=== PATIENT | male | born 1945 | race Caucasian/White ===

== ENCOUNTER 2023-01-11 06:43 | Inpatient (IN) | payer MEDICARE, MEDICAID ==
[2023-01-06 12:03] LABS: BILIRUBIN,URINE NEGATIVE (Neg); CLARITY,URINE CLEAR (Clear); COLOR,URINE YELLOW (Yellow); GLUCOSE, URINE NEGATIVE (Neg); KETONES,URINE NEGATIVE (Neg); LEUKOCYTE ESTERASE ,URINE NEGATIVE (Neg); NITRITES, URINE NEGATIVE (Neg); OCCULT BLOOD,URINE NEGATIVE (Neg); PROTEIN,URINE NEGATIVE (Neg); UROBILINOGEN,URINE 0.2 E.U/dL (0.2-1.0)
[2023-01-06 12:05] LABS: BASOPHILS % (AUTO) 0.4 % (0-1); EOSINOPHILS # (AUTO) 0.3 X10'3 (0-0.9); EOSINOPHILS % (AUTO) 5.2 % (0-6); LYMPHOCYTES # (AUTO) 1.4 X10'3 (1.1-4.8); MEAN CORPUSCULAR HEMOGLOBIN 30.3 PG (27.0-31.0); MEAN CORPUSCULAR HGB CONC 34.2 g/dL (33.0-36.5); MEAN CORPUSCULAR VOLUME 88.5 FL (78-98); MEAN PLATELET VOLUME 7.3 FL (7.4-10.4); MONOCYTES # (AUTO) 0.7 X10'3 (0-0.9); MONOCYTES % (AUTO) 11.7 % (2-12); NEUTROPHILS # (AUTO) 3.5 X10'3 (1.8-7.7); NEUTROPHILS % (AUTO) 58.7 % (42-75); PRE OP HEMATOCRIT 31.7 % (42.0-52.0); PRE OP PLATELET COUNT 298 X10'3 (140-440); RED BLOOD COUNT 3.59 X10'6 (4.70-6.10); RED CELL DISTRIBUTION WIDTH 13.2 % (11.5-14.5)
[2023-01-06 12:08] LABS: PRE OP HEMOGLOBIN 10.9 g/dL (14.0-17.9)
[2023-01-06 12:17] LABS: APTT 28 SECONDS (22-32); PROTHROMBIN TIME 10.6 SECONDS (9.0-12.0)
[2023-01-06 12:21] LABS: UA COLLECTION TYPE CLN CATCH MIDSTREAM
[2023-01-06 12:32] LABS: ALBUMIN 3.2 G/DL (3.4-5.0); ALBUMIN/GLOBULIN RATIO 0.8 (1.1-1.5); ALKALINE PHOSPHATASE 77 IU/L (46-116); BLOOD UREA NITROGEN 15 MG/DL (7-18); BUN/CREATININE RATIO 18.3 (10.0-20.0); CALCIUM 9.3 MG/DL (8.5-10.1); CHLORIDE 98 MMOL/L (99-107); CREATININE 0.82 MG/DL (0.60-1.10); PRE OP ALT 22 U/L (30-65); PRE OP ANION GAP 4 (8-16); PRE OP AST 18 U/L (10-37); PRE OP BILIRUB, TOTAL 0.3 MG/DL (0.0-1.0); PRE OP GLUCOSE 101 MG/DL (70-104); PRE OP POTASSIUM 4.1 MMOL/L (3.4-5.1); PRE OP SODIUM 132 MMOL/L (135-145); TOTAL CARBON DIOXIDE 29.8 MMOL/L (24-32); TOTAL PROTEIN 7.4 G/DL (6.4-8.2); eGFR > 90 ML/MIN
[~2023-01-11] VITALS: Ht 177.8 cm; Wt 77.5 kg
[2023-01-11] VITALS (27 sets, daily range): BP systolic 124–175; BP diastolic 64–90; PULSE 71–99; RESP 10–22; TEMP 97.1–98.2; O2SAT 89–99
[~2023-01-11 06:43] MED LIST: ARGI500C2 PO; ASPI-529 PO; ATOR40TA PO; BUPIVAcaine/PF 2.5 mg/ml (0.25%) 30ml vial ONE; CHOL50004 PO; GENSING; HYDR-3973 PO; MAGN250T11 PO; MULT-1085 PO; OMEP40CA21 PO; TIOT18CA7 IH; ZES10T PO; ZINC50TA60 PO; ceFOXitin 2GM-NS 100mL ADDvant 100 ML IV ONE; famotidine 20mg tablet PO ONE; ringers solution, lacted 1,000 ML IV SCH
[2023-01-11] MEDS ORDERED: hydrALAZINE 20mg/ml inj. IV PRN (07:55)
[2023-01-11] MEDS ORDERED: ondansetron/PF 4mg/2ml inj IV PRN ×2 (07:55→14:05)
[2023-01-11] MEDS ORDERED: morphine 2 MG/ML inj. syringe IV PRN (07:55)
[2023-01-11] MEDS ORDERED: labetalol 20mg/4ml (5mg/ml) syringe IV PRN (07:55)
[2023-01-11] MEDS ORDERED: ringers solution, lacted 1,000 ML IV SCH (07:55)
[2023-01-11] MEDS ORDERED: fentaNYL/PF 50MCG/1 ML 2ML syringe IV PRN (07:55)
[2023-01-11] MEDS ORDERED: desflurane 240ml liquid inh. IH ONE (08:45)
[2023-01-11] MEDS ORDERED: fentaNYL /PF 50mcg/ml 5ml ampule ONE (08:45)
[2023-01-11] MEDS ORDERED: PHENYLephrine 10mg/ml 5ml injection IV ONE (08:45)
[2023-01-11] MEDS ORDERED: dexamethasone sod phosphate 10mg/ml inj ONE (08:45)
[2023-01-11] MEDS ORDERED: midazolam 1 mg/ML 2ml injection ONE (08:45)
[2023-01-11] MEDS ORDERED: LIDOcaine 2% (20mg/ml) 5ml vial ONE ×2 (08:46→08:57)
[2023-01-11] MEDS ORDERED: propofol inj 20 ML IV ONE ×2 (08:46→08:56)
[2023-01-11] MEDS ORDERED: rocuronium 10mg/ml inj IV ONE ×3 (08:56→11:32)
[2023-01-11] MEDS ORDERED: ondansetron/PF 4mg/2ml inj ONE (08:56)
[2023-01-11] MEDS ORDERED: labetalol 20mg/4ml (5mg/ml) syringe IV ONE (09:44)
[2023-01-11] MEDS ORDERED: sugammadex 200mg/2ml injection IV ONE (13:13)
--- NOTE | 2023-01-11 13:39 | NUR ---
Received from OR via BED IN STABLE CONDITION , accompanied by Anesthesiologist and SECTION WEAVER report given by SECTION WEAVER AND Anesthesiolgist. Addendum: 01/11/23 at 1501 by Kenna Foster RN Amended: Links added.
[2023-01-11] MEDS: morphine 4 MG/ML inj SYRINge IV PRN ×3 (13:43→14:08)
[2023-01-11] MEDS ORDERED: oxyCODONE IR 5mg (immed. release) tablet PO STA (13:50)
[2023-01-11] MEDS ORDERED: naloxone 0.4 mg/ml inj IV PRN (14:05)
[2023-01-11] MEDS: acetaminophen 1,000mg/100ml IV 100 ML IV SCH ×2 (14:09→19:56)
[2023-01-11] MEDS: fentaNYL/PF 50MCG/1 ML 2ML syringe IV PRN ×2 (14:28→14:37)
--- NOTE | 2023-01-11 16:29 | NUR ---
PATIENT DISCHARGED FROM PACU IN STABLE CONDITION AFTER REPORT GIVEN TO RN TAKING OVER PATIENTS CARE. PATIENT TRANSFERRED TO ROOM 402 VIA BED WITH ELAN AND FABY. Addendum: 01/11/23 at 1637 by Kenna Foster RN Amended: Links added.
[2023-01-11] MEDS: potassium CL 20mEq in D5-1/2NS 1,000 ML IV SCH ×2 (16:48→20:09)
[2023-01-11] MEDS: HYDROmorphone inj. 0.5 MG/0.5 ML DISP.SYRIN IV PRN (16:51)
[2023-01-11] MEDS: ceFAZolin inj. 1,000 MG in dextrose 5%-water 50ml 50 ML IV SCH ×2 (16:52→16:57)
[2023-01-11] MEDS: HYDROcodone/acetaminophen 10/325mg tab PO PRN (17:39)
--- NOTE | 2023-01-11 18:12 | NUR ---
gave report to neo serrano
[2023-01-12] VITALS: BP 145/70; PULSE 90; RESP 16; TEMP 97.8; O2SAT 94
[2023-01-12] MEDS: HYDROmorphone inj. 0.5 MG/0.5 ML DISP.SYRIN IV PRN ×2 (00:33→05:05)
[2023-01-12 02:00] VITALS: BP 149/70; PULSE 88; RESP 17; TEMP 98; O2SAT 94
[2023-01-12] MEDS: acetaminophen 1,000mg/100ml IV 100 ML IV SCH ×2 (02:05→09:26)
[2023-01-12] MEDS: HYDROcodone/acetaminophen 10/325mg tab PO PRN ×2 (02:05→07:44)
[2023-01-12 06:00] VITALS: BP 151/66; PULSE 79; RESP 16; TEMP 98; O2SAT 93
[2023-01-12] MEDS: potassium CL 20mEq in D5-1/2NS 1,000 ML IV SCH ×2 (06:05→14:05)
--- NOTE | 2023-01-12 06:30 | NUR ---
Problems reprioritized. Patient report given, questions answered & plan of care reviewed with TASHA. Addendum: 01/12/23 at 0703 by Leland Barillas RN Amended: Links added.
[2023-01-12] MEDS: ceFAZolin inj. 1,000 MG in dextrose 5%-water 50ml 50 ML IV SCH (07:44)
[2023-01-12 10:00] VITALS: BP 145/79; PULSE 89; RESP 16; TEMP 97.9; O2SAT 96
[2023-01-12 13:42] LABS: BASOPHILS % (AUTO) 0.2 % (0-1); EOSINOPHILS # (AUTO) 0.1 X10'3 (0-0.9); EOSINOPHILS % (AUTO) 1.4 % (0-6); HEMATOCRIT 30.6 % (42.0-52.0); HEMOGLOBIN 10.4 g/dl (14.0-17.9); LYMPHOCYTES # (AUTO) 1.1 X10'3 (1.1-4.8); LYMPHOCYTES % (AUTO) 17.2 % (21-51); MEAN CORPUSCULAR HEMOGLOBIN 30.3 PG (27.0-31.0); MEAN CORPUSCULAR HGB CONC 34.1 g/dL (33.0-36.5); MEAN CORPUSCULAR VOLUME 88.7 FL (78-98); MEAN PLATELET VOLUME 6.9 FL (7.4-10.4); MONOCYTES # (AUTO) 0.9 X10'3 (0-0.9); MONOCYTES % (AUTO) 14.1 % (2-12); NEUTROPHILS # (AUTO) 4.2 X10'3 (1.8-7.7); NEUTROPHILS % (AUTO) 67.1 % (42-75); PLATELET COUNT 255 X10'3 (140-440); RED BLOOD COUNT 3.45 X10'6 (4.70-6.10); RED CELL DISTRIBUTION WIDTH 13.5 % (11.5-14.5); WHITE BLOOD COUNT 6.2 X10'3 (4.5-11.0)
--- NOTE | 2023-01-12 15:15 | NUR ---
PATIENT D/C. IV REMOVED AND INSTRUCTIONS GIVEN TO PATIENT AND . WENT OVER INSTRUCTIONS AND GIVEN OPPORTUNITY TO ASK ANY QUESTIONS.
== END 2023-01-12 15:35 | disposition home or self-care (01) | DRG 328 ==
LOC: PAS 06:43 → ORTHO 4S 14:04
PROVIDERS: ADMIT Surgery; ATTEND Surgery
PROC: 8E0W4CZ Robotic Assisted Procedure of Trunk Region, Percutaneous Endoscopic Approach (ICD-10-PCS; 2023-01-11)
PROC: 0BUT4JZ Supplement Diaphragm with Synthetic Substitute, Percutaneous Endoscopic Approach (ICD-10-PCS; principal; 2023-01-11 08:45)
DX: K44.9 Diaphragmatic hernia without obstruction or gangrene (principal); J44.9 Chronic obstructive pulmonary disease, unspecified; I10 Essential (primary) hypertension; F41.9 Anxiety disorder, unspecified; Z87.891 Personal history of nicotine dependence; Z79.899 Other long term (current) drug therapy; Z85.118 Personal history of other malignant neoplasm of bronchus and lung; Z92.21 Personal history of antineoplastic chemotherapy; Z92.3 Personal history of irradiation
CPT/HCPCS: 36415; 71045; 80053; 81003; 82948; 85025; 85610; 85730; 86885; 86900; 86901; A4215; A4615; A4618; C1758; C1781; G0378; J0131; J0690; J0694; J1100; J1170; J2250; J2270; J2370; J2405; J2704; J3010; J3480; J3490; J7060; J7120

== ENCOUNTER 2023-06-16 10:26 | Outpatient (CLI) | payer MEDICARE, MEDICAID ==
[~2023-06-16 10:26] MED LIST changes: -BUPIVAcaine/PF 2.5 mg/ml (0.25%) 30ml vial ONE; -HYDR-3973 PO; -TIOT18CA7 IH; -ceFOXitin 2GM-NS 100mL ADDvant 100 ML IV ONE; -famotidine 20mg tablet PO ONE; -ringers solution, lacted 1,000 ML IV SCH
== END 2023-06-16 23:59 | disposition home or self-care (01) ==
LOC: RAD 10:26
PROVIDERS: ATTEND Surgery
DX: K22.89 Other specified disease of esophagus (principal); R13.10 Dysphagia, unspecified
CPT/HCPCS: 74220